=== PATIENT | female | born 1945 | race Caucasian/White ===

== ENCOUNTER 2023-09-29 18:23 | Inpatient (IN) | payer OTHER ==
[~2023-09-29] VITALS: Ht 160 cm; Wt 72.6 kg
[2023-09-29 18:23] VITALS: BP 145/48; PULSE 79; RESP 37; TEMP 99.3; O2SAT 95
[2023-09-29] MEDS: NACL 0.9% 1,000 ML IV SCH ×2 (19:05→23:00)
[2023-09-29] MEDS ORDERED: cefTRIAXone 1,000 MG VIAL ONE (19:24)
[2023-09-29 19:39] LABS: BASOPHILS # (AUTO) 0.2 K/uL (0.00-0.22); BASOPHILS % (AUTO) 1.2 % (0.0-2.0); EOSINOPHILS % (AUTO) 0.3 % (0.0-4.0); HEMATOCRIT 36.2 % (36-48); LYMPHOCYTES # (AUTO) 4.6 K/uL (2.5-16.5); LYMPHOCYTES % (AUTO) 31.7 % (20.5-51.1); MEAN CORPUSCULAR HEMOGLOBIN 30 pg (27-31); MEAN CORPUSCULAR HGB CONC 33 g/dL (33-37); MEAN CORPUSCULAR VOLUME 90.4 fL (80-94); MONOCYTES # (AUTO) 1.2 K/uL (0.8-1.0); MONOCYTES % (AUTO) 8.2 % (1.7-9.3); NEUTROPHILS # (AUTO) 8.6 K/uL (1.8-7.7); NEUTROPHILS % (AUTO) 58.6 % (42.2-75.2); PLATELET COUNT (AUTO) 284 K/uL (140-450); RED CELL DISTRIBUTION WIDTH 14.9 % (11.6-13.7); WHITE BLOOD COUNT (AUTO) 14.6 K/uL (4.8-10.8)
[2023-09-29] MEDS: cefTRIAXone 1,000 MG in DEXT 5% MINI-BAG PLUS 50 ML IV ONE (19:40)
[2023-09-29 19:50] LABS: ANION GAP 8.2 (8-16); CALCIUM 9.2 mg/dL (8.5-10.1); CARBON DIOXIDE 29.6 mmol/L (21-32); CHLORIDE 93 mmol/L (98-107); CREATININE 0.6 mg/dL (0.6-1.3); GLUCOSE 120 mg/dL (74-106); POTASSIUM 3.8 mmol/L (3.5-5.1); SODIUM SERUM 127 mmol/L (136-145); UREA NITROGEN, BLOOD 12 mg/dL (7-18)
[2023-09-29 19:58] LABS: ALANINE AMINOTRANSFERASE 14 U/L (12-78); ALBUMIN 2.5 g/dL (3.4-5.0); ALKALINE PHOSPHATASE 65 U/L (50-136); ASPARTATE AMINOTRANSFERASE 29 U/L (15-37); BILIRUBIN,DIRECT 0.2 mg/dL (0.0-0.3); TOTAL BILIRUBIN 0.5 mg/dL (0.0-1.0); TOTAL PROTEIN, SERUM 7.9 g/dL (6.4-8.2)
[2023-09-29 20:03] LABS: LACTIC ACID 0.8 mmol/L (0.4-2.0)
[2023-09-29 21:09] LABS: FLU A ANTIGEN negative (NEGATIVE); FLU B ANTIGEN NEGATIVE (NEGATIVE)
[2023-09-29 21:15] LABS: APPEARANCE,URINE SL CLOUDY (CLEAR); BILIRUBIN,URINE NEGATIVE (NEGATIVE); BLOOD, URINE TRACE-I (NEGATIVE); COLOR,URINE YELLOW (YELLOW); LEUKOCYTE ESTERASE ,URINE 3+ (NEGATIVE); NITRITE, URINE POSITIVE (NEGATIVE); PH,URINE 6.5 (5.0-9.0); PROTEIN,URINE TRACE (NEGATIVE); UGLUCOSE NEGATIVE (NEGATIVE); UROBILINOGEN,URINE 0.2 EU/dL (0.2 - 1)
[2023-09-29 21:25] LABS: BACTERIA,URINE 3+ /HPF (None Seen); MUCUS,URINE 1+ /LPF (None Seen); RBC,URINE 0-5 /HPF (0-5); SQUAMOUS EPITHELIAL CELL,UR 0-3 (FEW) /LPF (0-3 (FEW)); TRICHOMONAS,URINE None Seen /HPF (None Seen); WBC,URINE 80-100 /HPF (0-5); YEAST,URINE None Seen /HPF (None Seen)
[2023-09-29] MEDS ORDERED: HYDROcodone/APAP 5/325 MG 1 TAB TAB PO PRN (21:45)
[2023-09-29] MEDS ORDERED: ACETAMINOPHEN 325 MG TAB PO PRN (21:45)
[2023-09-29] MEDS ORDERED: ONDANSETRON 4 MG/2 ML VIAL IVP PRN (21:45)
[2023-09-29] MEDS ORDERED: AZITHROMYCIN 500 MG INJ VIAL IV ONE (22:38)
[2023-09-29] MEDS: AZITHROMYCIN 500 MG in DEXTROSE 5% 250 ML IV SCH (23:04)
[2023-09-30] MEDS ORDERED: MONT-72 PO (00:49)
[2023-09-30] MEDS ORDERED: ATRN INH (00:49)
[2023-09-30] MEDS ORDERED: IMI25 PO (00:49)
[2023-09-30] MEDS ORDERED: APIX5TAB PO (00:49)
[2023-09-30] MEDS ORDERED: SIMV-373 PO (00:49)
[2023-09-30] MEDS ORDERED: DIGO0.122 PO (00:49)
[2023-09-30] MEDS ORDERED: FOS70 PO (00:49)
[2023-09-30] MEDS ORDERED: METF-1139 PO (00:49)
[2023-09-30] MEDS ORDERED: OXYB5TAB44 PO (00:49)
[2023-09-30] MEDS ORDERED: OMEP-278 PO (00:49)
[2023-09-30] MEDS ORDERED: AMLO2.5T3 PO (00:49)
[2023-09-30] MEDS ORDERED: DOCU-299 PO (00:49)
[2023-09-30] MEDS ORDERED: CARV6.25 PO (00:49)
[2023-09-30] MEDS ORDERED: HUM SUBQ (00:49)
[2023-09-30] MEDS ORDERED: AMIO200T62 PO (00:49)
[2023-09-30] MEDS ORDERED: DULO30EC PO (00:49)
[2023-09-30] MEDS ORDERED: ACET-2619 PO (00:49)
[2023-09-30] MEDS ORDERED: ERGO-30 PO (00:49)
[2023-09-30] MEDS ORDERED: DULA0.75 SC (00:49)
[2023-09-30 03:23] VITALS: O2SAT 96
[2023-09-30 06:41] VITALS: O2SAT 96
[2023-09-30 06:52] LABS: BASOPHILS # (AUTO) 0.2 K/uL (0.00-0.22); BASOPHILS % (AUTO) 1.2 % (0.0-2.0); EOSINOPHILS # (AUTO) 0.2 K/uL (0-0.4); EOSINOPHILS % (AUTO) 1.6 % (0.0-4.0); HEMATOCRIT 33.6 % (36-48); HEMOGLOBIN 11.3 g/dL (12.0-16.0); LYMPHOCYTES # (AUTO) 3.9 K/uL (2.5-16.5); LYMPHOCYTES % (AUTO) 28.1 % (20.5-51.1); MEAN CORPUSCULAR HEMOGLOBIN 31 pg (27-31); MEAN CORPUSCULAR HGB CONC 34 g/dL (33-37); MEAN CORPUSCULAR VOLUME 91.3 fL (80-94); MONOCYTES # (AUTO) 1.5 K/uL (0.8-1.0); MONOCYTES % (AUTO) 10.8 % (1.7-9.3); NEUTROPHILS % (AUTO) 58.3 % (42.2-75.2); PLATELET COUNT (AUTO) 260 K/uL (140-450); RED BLOOD CELL COUNT(AUTO) 3.68 MIL/uL (4.20-5.40); RED CELL DISTRIBUTION WIDTH 14.7 % (11.6-13.7); WHITE BLOOD COUNT (AUTO) 13.8 K/uL (4.8-10.8)
[2023-09-30 07:00] LABS: ANION GAP 8.7 (8-16); CALCIUM 8.1 mg/dL (8.5-10.1); CARBON DIOXIDE 29.8 mmol/L (21-32); CHLORIDE 97 mmol/L (98-107); CREATININE 0.5 mg/dL (0.6-1.3); GLUCOSE 101 mg/dL (74-106); POTASSIUM 3.5 mmol/L (3.5-5.1); SODIUM SERUM 132 mmol/L (136-145); UREA NITROGEN, BLOOD 8 mg/dL (7-18)
[2023-09-30 07:01] LABS: PHOSPHORUS 2.5 mg/dL (2.5-4.9)
[2023-09-30] MEDS: DOCUSATE SODIUM 100 MG GELCAP PO SCH (09:54)
[2023-09-30 10:45] VITALS: BP 148/48; PULSE 63; RESP 18; RESP 20; TEMP 97.6; O2SAT 97
[2023-09-30] MEDS: MAG SULF 2000 MG/WATER PREMIX 50 ML IV SCH (11:21)
[2023-09-30 16:00] VITALS: BP 136/72; PULSE 72; RESP 18; TEMP 98.4; O2SAT 98
[2023-09-30 16:01] VITALS: RESP 20; O2SAT 98
[2023-09-30 20:00] VITALS: BP 146/55; PULSE 67; PULSE 72; RESP 18; RESP 20; TEMP 97.6; O2SAT 98
[2023-09-30] MEDS: cefTRIAXone 1,000 MG VIAL ONE (20:42)
[2023-09-30] MEDS: AZITHROMYCIN 500 MG INJ VIAL IV ONE (21:47)
[2023-10-01] MEDS ORDERED: HYDRAGUARD CREAM TP PRN (00:55)
[2023-10-01] MEDS: HYDRAGUARD CREAM TP SCH (01:00)
[2023-10-01 04:00] VITALS: BP 138/46; PULSE 69; RESP 20; TEMP 97.2; O2SAT 99
[2023-10-01 06:45] LABS: BASOPHILS # (AUTO) 0.1 K/uL (0.00-0.22); EOSINOPHILS # (AUTO) 0.2 K/uL (0-0.4); EOSINOPHILS % (AUTO) 1.5 % (0.0-4.0); HEMATOCRIT 33.4 % (36-48); HEMOGLOBIN 11.3 g/dL (12.0-16.0); LYMPHOCYTES # (AUTO) 2.5 K/uL (2.5-16.5); LYMPHOCYTES % (AUTO) 24.1 % (20.5-51.1); MEAN CORPUSCULAR HEMOGLOBIN 31 pg (27-31); MEAN CORPUSCULAR HGB CONC 34 g/dL (33-37); MEAN CORPUSCULAR VOLUME 91.5 fL (80-94); MONOCYTES % (AUTO) 9.2 % (1.7-9.3); NEUTROPHILS # (AUTO) 6.8 K/uL (1.8-7.7); NEUTROPHILS % (AUTO) 64.2 % (42.2-75.2); PLATELET COUNT (AUTO) 221 K/uL (140-450); RED BLOOD CELL COUNT(AUTO) 3.65 MIL/uL (4.20-5.40); RED CELL DISTRIBUTION WIDTH 14.8 % (11.6-13.7); WHITE BLOOD COUNT (AUTO) 10.6 K/uL (4.8-10.8)
[2023-10-01 07:13] LABS: MAGNESIUM 1.4 mg/dL (1.8-2.4); PHOSPHORUS 2.8 mg/dL (2.5-4.9)
[2023-10-01 07:30] LABS: ANION GAP 9.6 (8-16); CALCIUM 7.9 mg/dL (8.5-10.1); CARBON DIOXIDE 29.4 mmol/L (21-32); CHLORIDE 100 mmol/L (98-107); CREATININE 0.4 mg/dL (0.6-1.3); GLUCOSE 101 mg/dL (74-106); SODIUM SERUM 136 mmol/L (136-145); UREA NITROGEN, BLOOD 5 mg/dL (7-18)
[2023-10-01 08:00] VITALS: PULSE 70; RESP 20; O2SAT 98
[2023-10-01] MEDS: MAGNESIUM OXIDE 400 MG TAB PO PRN (12:04)
[2023-10-01] MEDS: POTASSIUM CHLORIDE 10 MEQ TABER PO PRN (12:05)
[2023-10-01] MEDS: NACL 0.9% IRR 250 ML BOTTLE IR SCH (13:00)
[2023-10-01 16:00] VITALS: BP 158/63; PULSE 73; RESP 19; TEMP 97.3; O2SAT 99
[2023-10-01 20:00] VITALS: BP 137/45; PULSE 66; RESP 20; TEMP 96.7; O2SAT 100
[2023-10-02] VITALS (8 sets, daily range): BP systolic 110–178; BP diastolic 45–62; PULSE 65–83; RESP 18–21; TEMP 97.5–98.5; O2SAT 95–100
[2023-10-02 06:54] LABS: BASOPHILS # (AUTO) 0.1 K/uL (0.00-0.22); BASOPHILS % (AUTO) 0.8 % (0.0-2.0); EOSINOPHILS # (AUTO) 0.2 K/uL (0-0.4); EOSINOPHILS % (AUTO) 2.1 % (0.0-4.0); HEMATOCRIT 36.7 % (36-48); HEMOGLOBIN 12.3 g/dL (12.0-16.0); LYMPHOCYTES # (AUTO) 2.4 K/uL (2.5-16.5); LYMPHOCYTES % (AUTO) 25.2 % (20.5-51.1); MEAN CORPUSCULAR HEMOGLOBIN 30 pg (27-31); MEAN CORPUSCULAR HGB CONC 33 g/dL (33-37); MONOCYTES # (AUTO) 0.9 K/uL (0.8-1.0); MONOCYTES % (AUTO) 9.9 % (1.7-9.3); NEUTROPHILS # (AUTO) 5.9 K/uL (1.8-7.7); PLATELET COUNT (AUTO) 233 K/uL (140-450); RED BLOOD CELL COUNT(AUTO) 4.04 MIL/uL (4.20-5.40); RED CELL DISTRIBUTION WIDTH 15.2 % (11.6-13.7); WHITE BLOOD COUNT (AUTO) 9.4 K/uL (4.8-10.8)
[2023-10-02 07:17] LABS: ANION GAP 11.3 (8-16); CALCIUM 8.7 mg/dL (8.5-10.1); CHLORIDE 101 mmol/L (98-107); CREATININE 0.4 mg/dL (0.6-1.3); GLUCOSE 111 mg/dL (74-106); POTASSIUM 3.3 mmol/L (3.5-5.1); SODIUM SERUM 139 mmol/L (136-145); UREA NITROGEN, BLOOD 3 mg/dL (7-18)
[2023-10-02 07:20] LABS: MAGNESIUM 1.3 mg/dL (1.8-2.4); PHOSPHORUS 2.5 mg/dL (2.5-4.9)
[2023-10-02] MEDS ORDERED: FOAM DRESSING TP PRN (11:25)
[2023-10-02] MEDS: FOAM DRESSING TP SCH (13:00)
[2023-10-02] MEDS: ANTIFUNGAL CLEAR OINTMENT TP SCH (13:00)
[2023-10-02] MEDS ORDERED: LEVO-481 PO (14:03)
[2023-10-02] MEDS: hydrALAZINE 20 MG/ML VIAL IVP PRN (20:51)
== END 2023-10-02 21:00 | DRG 871 ==
LOC: MED 18:23 → MMU 21:41 → MIC 09-30 05:00 → MMU 09-30 05:55 → MIC 09-30 05:56 → MTU 09-30 10:50
PROVIDERS: ADMIT Hospitalist; ATTEND Hospitalist
DX: A41.9 Sepsis, unspecified organism (principal); J18.9 Pneumonia, unspecified organism; J96.01 Acute respiratory failure with hypoxia; E87.1 Hypo-osmolality and hyponatremia; N39.0 Urinary tract infection, site not specified; Z20.822 Contact with and (suspected) exposure to COVID-19; I10 Essential (primary) hypertension; E78.5 Hyperlipidemia, unspecified; E11.9 Type 2 diabetes mellitus without complications; B96.20 Unspecified Escherichia coli [E. coli] as the cause of diseases classified elsewhere
CPT/HCPCS: 36415; 71045; 80048; 80076; 81001; 82948; 83605; 83735; 83880; 84100; 84484; 85025; 87040; 87081; 87086; 93005; 96365; 99285; J0360; J0456; J0696; J1644; J3475; J7060; Q0092